=== PATIENT | male | born 2000 | race Caucasian/White ===

== ENCOUNTER 2021-11-15 12:06 | Emergency (ER) | payer OTHER, SELFPAY ==
--- NOTE | 2021-11-15 12:09 | ED.SKABFB ---
HPI - Skin/Abscess/Foreign Bdy General Chief complaint: Skin/Abscess/Foreign Body Stated complaint: Vomiting,Skin Sore Time Seen by Provider: 11/15/21 12:09 Source: patient and RN notes reviewed History of Present Illness HPI narrative: Patient is a 21-year-old male who presents the urgent care with his girlfriend with complaints of being bleeding from the bellybutton and one episode of vomiting this morning. Patient states that he vomited very early this morning, went back to sleep and denies of any nausea, diarrhea or abdominal pain. Patient states he has mild tenderness surrounding the bellybutton. States that he noticed the bellybutton was a little wet and stuck a Q-tip in there getting out blood. Denies any fever. Denies of any abdominal history or any recent trauma to the abdomen. No other acute complaints. No acute distress noted. Patient aware of the plan of care. Some parts of this dictation were generated by voice recognition software and may contain typographical and/or grammatical inaccuracies. Related Data Home Medications Medication Instructions Recorded Confirmed No Home Medications 11/15/21 11/15/21 Allergies Allergy/AdvReac Type Severity Reaction Status Date / Time No Known Drug Allergies Allergy Unknown Unknown Verified 11/15/21 12:24 Review of Systems Review of Systems: CONSTITUTIONAL: Denies fever, chills, or sweats. EYES: Denies visual changes, redness, or discharge. ENT: Denies rhinorrhea, congestion, sore throat, or otalgia. CARDIOVASCULAR: Denies chest pain, palpitations, or edema. RESPIRATORY: Denies cough or dyspnea. GASTROINTESTINAL: Reports of 1 episode of vomiting without abdominal pain, nausea or diarrhea. Reports of tenderness under the umbilicus with scant bleeding from the bellybutton GENITOURINARY: Denies dysuria or hematuria. SKIN: Denies rash or itching. MUSCULOSKELETAL: Denies back pain, joint pain, or myalgia. NEUROLOGIC: Denies headache, numbness, or weakness. All other systems reviewed are negative, except as documented in HPI. PMFSH Comments At the time of my signature, I reviewed and agree with the nursing past medical, surgical, social, and family history. There is no relevant family history pertinent to the patient complaint. Exam Narrative: GENERAL: This is a well-nourished, well-developed patient, in no apparent distress. HEAD: normocephalic, atraumatic. EYES: PERRL. Sclera clear/white. Vision is grossly intact. EARS: External ears normal NOSE: External nose normal with no obvious nasal discharge, nares without redness, no rhinorrhea. THROAT: Mucous membranes moist NECK: Neck supple, CARDIOVASCULAR: Regular rate and rhythm without murmurs, gallops, or rubs. RESPIRATORY: Clear to auscultation. Breath sounds equal bilaterally. No wheezes, rales, or rhonchi. GASTROINTESTINAL: Abdomen soft, mild firm/tenderness under the umbilical region, nondistended. Bowel sounds are active. No guarding. Scant dried blood noted to the umbilicus. SKIN: warm, intact with no suspicious lesions or rash, good texture and turgor. NEURO: awake, alert, and oriented to person, place and time. There were no obvious focal neurologic abnormalities. EXTREMITIES: No clubbing, cyanosis, or edema. Course Course Level of Care: Express Care Visit Vital Signs Vital signs: Vital Signs Temperature 99.3 F 11/15/21 12:13 Pulse Rate 75 11/15/21 12:13 Respiratory Rate 18 11/15/21 12:13 Blood Pressure 136/52 L 11/15/21 12:13 Pulse Oximetry 99 11/15/21 12:13 Temperature 99.3 F 11/15/21 12:13 Pulse Rate 75 11/15/21 12:13 Respiratory Rate 18 11/15/21 12:13 Blood Pressure 136/52 L 11/15/21 12:13 Pulse Oximetry 99 11/15/21 12:13 Reviewed MDM - Skin/Abscess/Foreign Bdy MDM Narrative Medical decision making narrative: Advised the patient not to put anything in the bellybutton, such as Q-tips. May wash the area with plain Dial soap and water. Wear nonocclusive clothing an
[2021-11-15 12:13] VITALS: BP 136/52; PULSE 75; RESP 18; TEMP 37.4; O2SAT 99
== END 2021-11-15 12:25 | disposition home or self-care (01) ==
PROVIDERS: Emergency Provider Nurse Practitioner Family
DX: R19.8 Other specified symptoms and signs involving the digestive system and abdomen (principal)
CPT/HCPCS: 99202; G0463

== ENCOUNTER 2024-06-28 12:29 | Emergency (ER) | payer OTHER, SELFPAY ==
[2024-06-28 12:36] VITALS: BP 145/85; PULSE 94; RESP 20; TEMP 36.4; O2SAT 100
--- NOTE | 2024-06-28 12:46 | ED.SKABFB ---
HPI - Skin/Abscess/Foreign Bdy General Chief complaint: Wound/Laceration Stated complaint: remove tim on left leg Time Seen by Provider: 06/28/24 12:46 Source: patient, RN notes reviewed and old records reviewed Mode of arrival: ambulatory Limitations: no limitations History of Present Illness HPI narrative: 24-year-old male to Express Care requesting staple removal oral left lower anterior leg. Patient states he cut it on a nail 9 days ago. Patient states he was unable to merchandise pickup/receiving associate antibiotic prescription from the emergency department due to finances. Area surrounding wound erythematous, edematous, tender to touch. Patient denies fever, drainage from wound allergies, history. Patient resting comfortably in exam room no acute distress. Related Data Allergies Allergy/AdvReac Type Severity Reaction Status Date / Time No Known Drug Allergies Allergy Unknown Unknown Verified 06/28/24 12:54 Review of Systems Review of Systems: All systems reviewed & are unremarkable except as noted in HPI and below Constitutional: Constitutional: Reports no additional constitutional complaints Eyes: Eyes: Reports no additional eye complaints ENT: Reports system reviewed and no additional complaints, except as documented Cardiovascular: Cardiovascular: Reports no additional cardiovascular complaints, Denies chest pain and Denies dyspnea Respiratory: Respiratory: Reports no additional respiratory complaints, Denies cough and Denies dyspnea Musculoskeletal: Musculoskeletal: Reports no additional musculoskeletal complaints Integumentary/Breasts: Skin/Breast: Reports wounds Comments: healing wound to left lower anterior leg, 3 tim need removal Neurologic: Reports system reviewed and no additional complaints, except as documented Psychiatric: Psychiatric: Reports no additional psychiatric complaints PMFSH Comments At the time of my signature, I reviewed and agree with the nursing past medical, surgical, social, and family history. There is no relevant family history pertinent to the patient complaint. Exam Const: General: cooperative, healthy appearing, comfortable, no acute distress, alert and well nourished Nutritional Appearance: well nourished Orientation/consciousness: patient oriented x3 Limitations: no limitations HENMT: Head: normal to inspection Ears: external ears normal Face/Nose/Sinus: Normal external nose present, Normal nares present, normal facial exam, No erythema and No edema Face and sinus: normal facial exam, no erythema and no edema Mouth: Yes Normal oral and palatal mucosa present Eyes: General: appearance normal, both eyes and all related structures Neck: Neck: normal visual inspection, full ROM and no meningeal signs Chest: Chest palpation & inspection: normal inspection of the chest Resp: Effort & Inspection: normal respiratory effort and able to speak in complete sentences Cardio: Jugular venous distension: no JVD Rate: regular rate Back/Spine/Pelvis: Cervical Spine: cervical ROM normal Skin: General skin exam: normal color, turgor normal and other Other: 3 tim present in healing wound to left lower anterior leg, 3.5cm in length. 5cm x 3cm surrounding area of erythema, edema, tenderness Neuro: General: patient oriented x3, gait normal, moves all extremities and no meningeal signs Speech: normal speech Gait exam (Neuro): Normal gait present Extrem: General: normal to inspection, full ROM and capillary refill normal Psych: Appearance: grossly normal and well kempt Course Course Emergency Course: Some parts of this dictation were generated by voice recognition software and may contain typographical and/or grammatical inaccuracies. Level of Care: Express Care Visit Vital Signs Vital signs: Vital Signs Temperature 36.4 C L 06/28/24 12:36 Pulse Rate 94 06/28/24 12:36 Respiratory Rate 20 06/28/24 12:36 Blood Pressure 145/85 H 06/28/24 12:36 Pulse Oximetry 100 06/28/24 12:36 Oxygen Delivery Room Air 06/28/24 12:36 Temperature 36.4 C L 06/28/24 12:36 Pulse Rate 94 06/28/24 12:36 Respiratory Rate 20 06/28/24 12:36 Blood Pressure 145/85 H 06/28/24 12:36 Pulse Oximetry 100 06/28/24 12:36 Oxygen Delivery Room Air 06/28/24 12:36 reviewed MDM - Skin/Abscess/Foreign Bdy MDM Narrative Medical decision making narrative: 24-year-old male to Express Care requesting staple removal oral left lower anterior leg. Patient states he cut it on a nail 9 days ago. Patient states he was unable to merchandise pickup/receiving associate antibiotic prescription from the emergency department due to finances. Area surrounding wound erythematous, edematous, tender to touch. Patient denies fever, drainage from wound allergies, history. Patient resting comfortably in exam room no acute distress. On exam, 3 tim present in healing wound to left lower anterior leg, 3.5cm in length. 5cm x 3cm surrounding area of erythema, edema, tenderness Patient is sitting comfortably in exam room nontoxic in appearance. Patient appropriate for outpatient treatment and follow-up. Discharge instructions reviewed with patient, as well as provided in writing per nursing staff. The instructions also include specific and strict return/GO TO THE ER as well as f/u information. All questions have been answered, and the patient deny any further questions with discharge and discharge plan. Some parts of this dictation were generated by voice recognition software and may contain typographical and/or grammatical inaccuracies. Differential Diagnosis Differential diagnosis: Likely abscess of skin or subcutaneous tissue, viral exanthem, dermatophytosis, urticaria, herpes zoster, allergic reaction to drug, cellulitis, eczema, insect bites, impetigo and contact dermatitis Discharge Plan Discharge Clinical Impression: Cellulitis of left leg, Removal of tim Patient Disposition: Home, Self-Care Condition: Stable Instructions: Cellulitis (ED) Additional Instructions: Please review attached instructions regarding cellulitis and implement suggestions as tolerated please merchandise pickup/receiving associate your prescription antibiotic and finish entire course of antibiotic therapy for new or worsening symptoms please go directly to the emergency department Prescriptions: New doxycycline hyclate 100 mg capsule 100 mg PO BID Qty: 14 0RF Follow-up/Referrals: PHYSICIAN,[employer] [Primary Care Provider] - Stand Alone Forms: Work/School Release IP
== END 2024-06-28 13:05 | disposition home or self-care (01) ==
PROVIDERS: Emergency Provider Nurse Practitioner Family
DX: L03.116 Cellulitis of left lower limb (principal); Z48.02 Encounter for removal of sutures
CPT/HCPCS: 99211; G0463

== ENCOUNTER 2024-10-22 18:59 | Emergency (ER) | payer SELFPAY ==
--- OUTSIDE RECORDS SUMMARY | 2024-10-22 19:01 | XMS_ITS | Clinical Summary ---
Author Organization [facility] Address [address] [place] [address] Care Team Providers Care Senior Financial Reporting Analyst Name Role Phone Tony Aparicio MD Primary Care Provider Source Comments [facility],non-owned Affiliates and Associated Physician Practices is amultiple site organization consisting of ambulatory clinics and hospital sitesin [place], [place], [place] and [place]. This disclosure is being madepursuant to the Care Everywhere program and may not contain all information available regarding this patient. Last updated 18.[facility] Allergies No known active allergies Medications * Be aware that medications may not be up to date on this document. Alwaysverify current medications with the patient. Medication Sig Dispensed Refills Start Date End Date Status hydrocortisone, rectal, (HEMORRHOIDAL-HC) 2.5 % cream 12/06/2015 Active omeprazole (PRILOSEC) 40 MG capsule Take 1 Cap by mouth daily before breakfast 30 Cap 3 03/27/2016 Active Active Problems Patient Care Coordination No te Formatting of this note migh t be different from the original. Jose Guadalupe is Tomeka (grandmother). Problem Noted Date Diagnosed Date Abnormal weight loss 03/27/2016 Abdominal pain, generalized 06/30/2014 Blood in stool 06/30/2014 Resolved Problems Problem Noted Date Diagnosed Date Resolved Date Constipation 01/07/2016 02/04/2016 Social History Tobacco Use Types Packs/Day Years Used Date Smoking Tobacco: Never Alcohol Use Standard Drinks/Week Comments Not Asked 0 (1 standard drink = 0.6 oz pur e alcohol) Sex and Gender Information Value Date Recorded Sex Assigned at Not on file Gender Identity Not on file Sexual Orientation Not on file Last Filed Vital Signs Vital Sign Reading Time Taken Comments Blood Pressure 104/70 03/27/2016 1:00 PM CDT Pulse 63 03/27/2016 1:00 PM CDT Temperature 36.3 C (97.4 F) 03/27/2016 12:18 PM CDT Respiratory Rate 18 03/27/2016 1:00 PM CDT Oxygen Saturation 98% 03/27/2016 1:00 PM CDT Inhaled Oxygen Concentration - - Weight 86.3 kg (190 lb 4.1 oz) 03/27/2016 9:05 A M CDT Height 185.2 cm (6' 0.91 ) 03/27/2016 9:05 AM CD T Body Mass Index 25.16 03/27/2016 9:05 AM CDT Plan of Treatment Health Maintenance Due Date Last Done Comments HIV SCREENING 2013 HPV VACCINE (1 - Male 3-dose series) 2013 HEPATITIS C SCREENING 03/23/2016 DTAP/TDAP/TD VACCINES (1 - Tdap) 2017 HEPATITIS B VACCINE (1 of 3 - 19+ 3-dose series) 2017 COVID-19 VACCINE (1 - 2023-2 5 season) 2024 INFLUENZA VACCINE (#1) 2024 DEPRESSION SCREENING 08/17/2024 ZOSTER VACCINE (1 of 2) 2048 HIB VACCINE Aged Out No longer eligi ble based on patient's age to complete this topic MENINGOCOCCAL (Group B) VACCINE Aged Out No longer eligible based on patient's age to complete this topic MENINGOCOCCAL VACCINE Aged Out No marlene gerson eligible based on patient's age to complete this topic PNEUMOCOCCAL VACCINE Aged Out No long er eligible based on patient's age to complete this topic Care Teams Senior Financial Reporting Analyst Relationship Specialty Start Date End Date Tony Aparicio MD PCP - General Internal Medicine 06/06/14
--- OUTSIDE RECORDS SUMMARY | 2024-10-22 19:01 | XMS_ITS | Patient Health Summary ---
Author Organization [facility] Address [address] [place] [address] Care Team Providers Care Software Clerk Name Role Phone Tony Aparicio MD Primary Care Provider Note from [facility],non-owned Affiliates and Associated Physician Practices is amultiple site organization consisting of ambulatory clinics and hospital sitesin [place], [place], [place] and [place]. This disclosure is being madepursuant to the Care Everywhere program and may not contain all information available regarding this patient. Last updated 18.[facility] Allergies No known active allergies Medications * Be aware that medications may not be up to date on this document. Alwaysverify current medications with the patient. * hydrocortisone, rectal, (HEMORRHOIDAL-HC) 2.5 % cream(Started 12/06/2015) * omeprazole (PRILOSEC) 40 MG capsule(Started 03/27/2016) Take 1 Cap by mouth daily before breakfast 3 refills left Active Problems Problem Noted Date Diagnosed Date Abnormal weight [...] Mass Index 25.16 03/27/2016 9:05 AM CDT Procedures * HELICOBACTER PYLORI UREASE (STL)(Performed 03/27/2016) Performed for Abdominal pain, generalized, Blood in stool, Abnormal weight loss * EGD(Performed 03/27/2016) * PATHOLOGY TISSUE EXAM (STL)(Performed 03/27/2016) Performed for Abdominal pain, unspecified abdominal location * PTT(Performed 03/27/2016) Performed for Abdominal pain, generalized, Blood in stool * PT-INR(Performed 03/27/2016) Performed for Abdominal pain, generalized, Blood in stool * C-REACTIVE PROTEIN(Performed 03/27/2016) Performed for Abdominal pain, generalized, Blood in stool * COMPREHENSIVE METABOLIC PANEL(Performed 03/27/2016) Performed for Abdominal pain, generalized, Blood in stool * CBC W AUTO DIFFERENTIAL(Performed 03/27/2016) Performed for Abdominal pain, generalized, Blood in stool * ESOPHAGOSCOPY DIAGNOSTIC WITH BIOPSY(Performed 03/27/2016) Performed for Abdominal pain, unspecified abdominal location * COLONOSCOPY BIOPSY (ANY METHOD)(Performed 03/27/2016) Performed for Abdominal pain, unspecified abdominal location * ENDOSCOPY, COLON, DIAGNOSTIC(Performed 03/27/2016) Performed for Abdominal pain, generalized, Blood in stool * CULTURE STOOL PANEL(Performed 06/30/2014) * GIARDIA CRYPTOSPORIDIUM ANTIGEN PANEL(Performed 06/30/2014) Performed for Abdominal pain, generalized, Blood In Stool * O+P PANEL(Performed 06/30/2014) Performed for Abdominal pain, generalized, Blood In Stool * C DIFFICILE TOXIN A+B(Performed 06/30/2014) Performed for Abdominal pain, generalized, Blood In Stool * TISSUE TRANSGLUTAMINASE AB IGA(Performed 06/30/2014) Performed for Abdominal pain, generalized, Blood In Stool * PTT(Performed 06/30/2014) Performed for Abdominal pain, generalized, Blood In Stool * PT-INR(Performed 06/30/2014) Performed for Abdominal pain, generalized, Blood In Stool * IGA BLOOD(Performed 06/30/2014) Performed for Abdominal pain, generalized, Blood In Stool * C-REACTIVE PROTEIN(Performed 06/30/2014) Performed for Abdominal pain, generalized, Blood In Stool * COMPREHENSIVE METABOLIC PANEL(Performed 06/30/2014) Performed for Abdominal pain, generalized, Blood In Stool * CBC W AUTO DIFFERENTIAL(Performed 06/30/2014) Performed for Abdominal pain, generalized, Blood In Stool * AMYLASE BLOOD(Performed 06/30/2014) Performed for Abdominal pain, generalized, Blood In Stool Results * HELICOBACTER PYLORI UREASE (STL) (03/27/2016 12:00 PM CDT) Helicobacter pylori Urease Initial Negative Negative 2016 6:34 PM CDT [facility] Helicobacter pylori Urease Final Negative Negative 2016 6:34 PM CDT [facility] Comment:This is an appended report. These results have been appended to a previously preliminary verified report. Microbiology GASTRIC ANTRAL BIOPSY SPECIMEN / Unknown 03/27/2016 12:00 PM CDT 03/27/2016 3:20 PM CDT Carroll Conte MD LAB - MICROBIOLOGY ORDERABLES Performing Organization Address City/State/[facility] Co de Phone Number [facility] [address] [place] [address] * EGD (03/27/2016 11:53 AM CDT) Report Endoscopy POC _ Patient Name: Chris Keller Date of : 2000 Admit Type: Outpatient Age: 15 Gender: Male Attending MD: Carroll Conte MD Order #: [id number] _ Procedure: Upper GI endoscopy Indications: Generalized abdominal pain, Hematochezia, Diarrhea Providers: Carroll Conte MD Referring MD: Tony Aparicio Medicines: General Anesthesia Complications: No immediate complications. _ Procedure: After obtaining informed consent, the endoscope was passed under direct vision. Throughout the procedure, the patient's blood pressure, pulse, and oxygen saturations were monitored continuously. The Endoscope was introduced through the mouth, and advanced to the third part of duodenum. The upper GI endoscopy was accomplished without difficulty. The patient tolerated the procedure well. Findings: The examined duodenum was normal. Biopsies were taken with a cold forceps for histology. 2 samples The entire examined stomach was normal. Biopsies were taken with a cold forceps for histology. Pediatric Grade 2 (confluent, noncircumferential erosive or exudative lesions, deep vertical grooving) esophagitis with no bleeding was found at the gastroesophageal junction. Biopsies were taken with a cold forceps for histology. Impression: - Normal examined duodenum. Biopsied. - Normal stomach. Biopsied. - Pediatric Grade 2 (confluent, noncircumferential erosive or exudative lesions, deep vertical grooving) esophagitis. Biopsied. Recommendation: - Discharge patient to home (with parent). - Continue present medications. - Use Prilosec (omeprazole) 40 mg PO daily. - Await pathology results. - Telephone GI clinic for pathology results in 1 week. Procedure Code(s): --- Professional --- 52805, Esophagogastroduodeno scopy, flexible, transoral; with biopsy, single or multiple --- Technical --- 48890, Esophagogastroduodeno scopy, flexible, transoral; with biopsy, single or multiple Diagnosis Code(s): --- Professional --- K20.9, Esophagitis, unspecified R10.84, Generalized abdominal pain K92.1, Melena (includes Hematochezia) R19.7, Diarrhea, unspecified --- Technical --- K20.9, Esophagitis, unspecified R10.84, Generalized abdominal pain K92.1, Melena (includes Hematochezia) R19.7, Diarrhea, unspecified CPT copyright 2015 [employer]. All rights reserved. The codes documented in this report are preliminary and upon process automation engineer review may be revised to meet current compliance requirements. Dr. Carroll Conte Carroll Conte MD 03/27/2016 12:10:03 PM This report has been signed electronically. Number of Addenda: 0 Note Initiated On: 03/27/2016 11:53 AM Procedure Date: 03/27/2016 11:53:17 AM This report has been signed electronically. [facility] 03/27/2016 11:5 3 AM CDT Carroll Conte MD GI PROCEDURE ORDERA BLES Performing Organization Address City/State/[facility] Co de Phone Number [facility] [address] [place] [address] * GROSS + MICRO EXAM (STL) (03/27/2016 11:42 AM CDT) Case Report Surgical Pathology Report Case: [id number] Authorizing Provider: Carroll Conte MD Collected: 03/27/2016 11:42 AM Ordering Location: ENDOSCOPY SERVICES Received: 03/27/2016 12:23 PM Pathologist: Krystian Serna MD Specimens: A) - Ileum Terminal, biopsy B) - Colon Ascending Biopsy C) - Colon Descending Biopsy D) - Rectal Biopsy E) - Duodenal Biopsy F) - Stomach Biopsy G) - Esophageal Biopsy 04/07/2016 12:24 PM CDT [facility] Final Diagnosis A. ILEUM, TERMINAL, BIOPSY: - NO PATHOLOGICAL DIAGNOSIS. B. COLON, ASCENDING, BIOPSY: - NO PATHOLOGICAL DIAGNOSIS. C. COLON, DESCENDING, BIOPSY: - NO PATHOLOGICAL DIAGNOSIS. D. RECTUM, BIOPSY: - RARE INTRAEPITHELIAL AND LAMINA PROPRIA NEUTROPHILS. SEE MICROSCOPIC DESCRIPTION AND COMMENT. E. DUODENUM, BIOPSY: - MILD CHRONIC INFLAMMATION. F. STOMACH, BIOPSY: - NO PATHOLOGICAL DIAGNOSIS. G. ESOPHAGUS, BIOPSY: - ESOPHAGITIS, MILD. - INTRAEPITHELIAL EOSINOPHILS ARE NOT SEEN. COMMENT: Sections from the rectum shows very rare intraepithelial neutrophils and lamina propria with no evidence of architectural changes or chronic lymphoplasmacytic inflammation. These findings have been reported associated to colonic preparation. 04/07/2016 12:24 PM [facility] Clinical History The patient is a 15-year-old boy with abdominal pain who underwent upper endoscopy and colonoscopy. 04/07/2016 12:24 PM [facility] Gross Description The specimens are received fixed in formalin in seven containers for gross and microscopic examination. All containers are labeled with the patient's name, Chris Keller. Specimen A, terminal ileum biopsy consists of two soft, yellow-yeung tissue fragments 3-5 mm in greatest dimension. The specimen is submitted in toto as A1. Specimen B, ascending colon biopsy consists of two soft, yellow-yeung tissue fragments 4-5 mm in greatest dimension. The specimen is submitted in toto as B1. Specimen C, descending colon biopsy consists of two soft, yellow-yeung tissue fragments 4-5 mm in greatest dimension. The specimen is submitted in toto as C1. Specimen D, rectum biopsy consists of three soft, yellow-yeung tissue fragments 4-5 mm in greatest dimension. The specimen is submitted in toto as D1. Specimen E, duodenal biopsy consists of four soft, yellow-yeung tissue fragments 1 mm to 4 mm in greatest dimension. The specimen is submitted in toto as E1. Specimen F, stomach biopsy consists of two soft, yellow-yeung tissue fragments 3-4 mm in greatest dimension. The specimen is submitted in toto as F1. Specimen G, esophageal biopsy consists of two pink-yeung tissue fragments 3-4 mm in greatest dimension. The specimen is submitted in toto as G1. Delaney 04/07/2016 12:24 PM [facility] Microscopic Description 21 H&E Sections from the terminal ileum shows no significant histopathological changes. Sections from the ascending and descending colon shows colonic mucosa with preserved architecture and no significant inflammation. The sections from the rectum, in addition, shows rare intraepithelial and lamina propria neutrophils. Sections from duodenum show duodenal mucosa with normal villous architecture. There is mild increased in lamina propria plasma cells. Acute inflammation or micro-organisms are not seen. Sections from the stomach show oxyntic and antral-type gastric mucosa with preserved architecture and no significant inflammation. Sections from the esophagus show squamous mucosa with congestion and mild hyperplasia of lamina propria papillae. Inflammation, including eosinophils, are not seen. 04/07/2016 12:24 PM CDT [facility] Pathology/Cytology TERMINAL ILEUM RESECTION SPECIMEN / Unknown 03/27/2016 11:42 AM CDT 03/27/2016 12:23 PM CDT Miscellaneous samples (specimen) COLONIC BIOPSY SPECIMEN / Unknown 03/27/2016 11:44 AM CDT 03/27/2016 12:23 PM CDT Miscellaneous samples (specimen) COLONIC BIOPSY SPECIMEN / Unknown 03/27/2016 11:44 AM CDT 03/27/2016 12:23 PM CDT Miscellaneous samples (specimen) RECTAL BIOPSY SPECIMEN / Unknown 03/27/2016 11:44 AM CDT 03/27/2016 12:23 PM CDT Miscellaneous samples (specimen) DUODENAL BIOPSY SPECIMEN / Unknown 03/27/2016 11:59 AM CDT 03/27/2016 12:23 PM CDT Miscellaneous samples (specimen) BIOPSY OF STOMACH / Unknown 03/27/2016 11:59 AM CDT 03/27/2016 12:23 PM CDT Miscellaneous samples (specimen) ESOPHAGEAL BIOPSY SPECIMEN / Unknown 03/27/2016 11:59 AM CDT 03/27/2016 12:23 PM CDT Carroll Conte MD LAB - PATHOLOGY/CYT OLOGY ORDERABLES Performing Organization Address City/State/[facility] Co de Phone Number [facility] [place] [address] * C-REACTIVE PROTEIN (03/27/2016 11:23 AM CDT) Only the most recent of2 resultswithin the time period is included. C-Reactive Protein <0.20 <=0.50 mg/dL 03/27/2016 12:24 PM CDT [facility] Blood BLOOD SPECIMEN / Unknown 03/27/2016 11:23 AM CDT 03/27/2016 11:37 AM CDT Carroll Conte MD LAB - CHEMISTRY ORD ERABLES Performing Organization Address [facility] de Phone Number [facility] [address] [place] [phone] * PTT (03/27/2016 11:23 AM CDT) Only the most recent of2 resultswithin the time period is included. PTT 26.5 21.0 - 32.0 sec 03/27/2016 1:48 PM CDT [facility] Blood BLOOD SPECIMEN / Unknown 03/27/2016 11:23 AM CDT 03/27/2016 11:38 AM CDT Narrative [facility] - 03/27/2016 1:48 PM CDT Heparin Therapeutic Range for PTT: 47.7 - 68.6 seconds. Carroll Conte MD LAB - COAGULATION O RDLAURENT Performing Organization Address [facility] de Phone Number [facility] [address] [place] [phone] * PT-INR (03/27/2016 11:23 AM CDT) Only the most recent of2 resultswithin the time period is included. PT 10.8 9.5 - 11.6 sec 03/27/2016 1:47 PM CDT [facility] INR 1.0 0.9 - 1.1 03/27/2016 1:47 PM CDT [facility] Blood BLOOD SPECIMEN / Unknown 03/27/2016 11:23 AM CDT 03/27/2016 11:38 AM CDT Narrative [facility] - 03/27/2016 1:47 PM CDT Conventional Warfarin Anticoagulant Therapy: INR Reference Range: 2.0-3.0 Intensive Warfarin Anticoagulant Therapy: INR Reference Range: 2.5-3.5 Carroll Conte MD LAB - COAGULATION O RDERABLES Performing Organization Address [facility] Co de Phone Number [facility] [address] [place] [address] * (ABNORMAL) CBC W AUTO DIFFERENTIAL (03/27/2016 11:23 AM CDT) Only the most recent of2 resultswithin the time period is included. WBC 7.7 4.5 - 11.0 x10E9/L 03/27/2016 12:59 PM CDT [facility] WBC Corrected x10E9/L 03/27/2016 12:59 PM CDT [facility] RBC 4.79 4.50 - 5.30 x10E12/L 03/27/2016 12:59 PM CDT [facility] Hemoglobin 14.2 13.0 - 16.0 gm/dL 03/27/2016 12:59 PM CDT [facility] Hematocrit 43.3 37.0 - 49.0 % 03/27/2016 12:59 PM CDT [facility] MCV 90.4 78.0 - 98.0 fl 03/27/2016 12:59 PM CDT [facility] MCH 29.6 25.0 - 35.0 pg 03/27/2016 12:59 PM CDT [facility] MCHC 32.8 31.0 - 37.0 gm/dL 03/27/2016 12:59 PM CDT [facility] Platelet Count 236 100 - 400 x10E9/L 03/27/2016 12:59 PM CDT [facility] RDW-CV 11.8 11.5 - 14.0 % 03/27/2016 12:59 PM CDT [facility] MPV 11.1(H) 6.0 - 9.5 fl 03/27/2016 12:59 PM CDT [facility] Neutrophils % 52.0 31.0 - 78.0 % 03/27/2016 12:59 PM CDT [facility] Lymphocytes % 36.0 13.0 - 54.0 % 03/27/2016 12:59 PM CDT [facility] Monocytes % 9.1 4.0 - 13.0 % 03/27/2016 12:59 PM CDT [facility] Eosinophils % 2.2 0.0 - 8.0 % 03/27/2016 12:59 PM CDT [facility] Basophils % 0.4 % 03/27/2016 12:59 PM CDT [facility] Immature Granulocytes 0.3 % 03/27/2016 12:59 PM CDT [facility] Neutrophil Absolute 4.02 x10E9/L 03/27/2016 12:59 PM CDT [facility] Lymphocytes Absolute 2.78 x10E9/L 03/27/2016 12:59 PM CDT [facility] Monocytes Absolute 0.70 x10E9/L 03/27/2016 12:59 PM CDT [facility] Eosinophils Absolute 0.17 x10E9/L 03/27/2016 12:59 PM CDT [facility] Basophils Absolute 0.03 x10E9/L 03/27/2016 12:59 PM CDT [facility] Immature Granulocytes Absolute 0.02 x10E9/L 03/27/2016 12:59 PM CDT [facility] nRBC Auto 0 /100 WBC 03/27/2016 12:59 PM CDT [facility] Blood BLOOD SPECIMEN / Unknown 03/27/2016 11:23 AM CDT 03/27/2016 11:38 AM CDT Carroll Conte MD LAB - HEMATOLOGY OR DERABLES Performing Organization Address City/State/[facility] Co de Phone Number [facility] [address] [place] [phone] * (ABNORMAL) COMPREHENSIVE METABOLIC PANEL (03/27/2016 11:23 AM CDT) Only the most recent of2 resultswithin the time period is included. [facility] Signature Glucose 91 70 - 105 mg/dL 03/27/2016 12:45 PM CDT [facility] Sodium 142 136 - 145 mmol/L 03/27/2016 12:45 PM CDT [facility] Potassium 3.7 3.5 - 5.1 mmol/L 03/27/2016 12:45 PM CDT [facility] Chloride 107 98 - 107 mmol/L 03/27/2016 12:45 PM CDT [facility] CO2 25 20 - 28 mmol/L 03/27/2016 12:45 PM CDT [facility] Calcium 9.34 9.08 - 10.48 mg/dL 03/27/2016 12:45 PM CDT [facility] Anion Gap 10 5 - 20 mmol/L 03/27/2016 12:45 PM CDT [facility] BUN 5.9 5.3 - 18.7 mg/dL 03/27/2016 12:45 PM CDT [facility] Creatinine 1.08(H) 0.61 - 1.07 mg/dL 03/27/2016 12:45 PM CDT [facility] Alkaline Phosphatase 67(L) 100 - 390 U/L 03/27/2016 12:45 PM CDT [facility] ALT 16 6 - 46 U/L 03/27/2016 12:45 PM CDT [facility] Comment:See reference range update AST 12 3 - 35 U/L 03/27/2016 12:45 PM CDT [facility] Protein Total 7.2 6.3 - 8.2 gm/dL 03/27/2016 12:45 PM CDT [facility] Albumin 4.4 3.3 - 4.9 gm/dL 03/27/2016 12:45 PM CDT [facility] Bilirubin Total 1.6(H) 0.3 - 1.2 mg/dL 03/27/2016 12:45 PM T [facility] Blood BLOOD SPECIMEN / Unknown 03/27/2016 11:23 AM CDT 03/27/2016 11:37 AM CDT Carroll Conte MD LAB - CHEMISTRY ORD ERABLES [facility] [address] [place] [address] * ENDOSCOPY, COLON, DIAGNOSTIC (03/27/2016 5:53 AM CDT) Report Endoscopy POC _ Patient Name: Chris Keller Date of : 2000 Admit Type: Outpatient Age: 15 Gender: Male Attending MD: Carroll Conte MD Order #: [id number] _ Procedure: Colonoscopy Indications: Generalized abdominal pain, Chronic diarrhea, Hematochezia, Weight loss Providers: Carroll Conte MD Referring MD: Tony Aparicio Medicines: General Anesthesia Complications: No immediate complications. _ Procedure: After I obtained informed consent, the scope was passed under direct vision. Throughout the procedure, the patient's blood pressure, pulse, and oxygen saturations were monitored continuously. The Colonoscope was introduced through the anus and advanced to the terminal ileum. The colonoscopy was performed without difficulty. The patient tolerated the procedure well. The quality of the bowel preparation was good. Scope insertion time was 11 minutes. Findings: The perianal and digital rectal examinations were normal. The terminal ileum appeared normal. Biopsies were taken with a cold forceps for histology. The colon (entire examined portion) appeared normal. Biopsies were taken with a cold forceps for histology. Bx ascending, descending and rectum Impression: - The examined portion of the ileum was normal. Biopsied. - The entire examined colon is normal. Biopsied. Recommendation: - Discharge patient to home (with parent). - Continue present medications. - Await pathology results. - Telephone GI clinic for pathology results in 1 week. Procedure Code(s): --- Professional --- 10426, Colonoscopy, flexible; with biopsy, single or multiple --- Technical --- 20829, Colonoscopy, flexible; with biopsy, single or multiple Diagnosis Code(s): --- Professional --- R10.84, Generalized abdominal pain K52.9, Noninfective gastroenteritis and colitis, unspecified K92.1, Melena (includes Hematochezia) R63.4, Abnormal weight loss --- Technical --- R10.84, Generalized abdominal pain K52.9, Noninfective gastroenteritis and colitis, unspecified K92.1, Melena (includes Hematochezia) R63.4, Abnormal weight loss CPT copyright 2015 [employer]. All rights reserved. The codes documented in this report are preliminary and upon process automation engineer review may be revised to meet current compliance requirements. Dr. Carroll Conte ___ Carroll Conte MD 03/27/2016 12:12:38 PM This report has been signed electronically. Number of Addenda: 0 Note Initiated On: 03/27/2016 5:53 AM Procedure Date: 03/27/2016 5:53:54 AM This report has been signed electronically. [facility] 03/27/2016 5:53 AM CDT Christi BUTCHER GI PROCEDURE ESDRAS ARDON [facility] [place] [address] * CULTURE STOOL PANEL (06/30/2014 1:40 PM MEDICAL EDUCATION COORDINATOR) E[facility] Comment: SHIGA TOXINS, EIA W/RFL TO E.COLI O157 CULTURE MICRO NUMBER: [id number] TEST STATUS: FINAL SPECIMEN SOURCE: STOOL SPECIMEN QUALITY: ADEQUATE RESULT: Not Detected Test Performed at: [facility] [id number] ELIZA JHA MD Culture [facility] Comment: CAMPYLOBACTER, CULTURE MICRO NUMBER: [id number] TEST STATUS: FINAL SPECIMEN SOURCE: STOOL SPECIMEN QUALITY: ADEQUATE RESULT: No enteric Campylobacter isolated Culture [facility] Comment: SALMONELLA AND SHIGELLA, CULTURE MICRO NUMBER: [id number] TEST STATUS: FINAL SPECIMEN SOURCE: STOOL SPECIMEN QUALITY: ADEQUATE RESULT: No Salmonella or Shigella isolated 06/30/2014 1:40 PM MEDICAL EDUCATION COORDINATOR 06/30/2014 1:42 PM MEDICAL EDUCATION COORDINATOR Christi BUTCHER LAB - MICROBIOLOG Y ORDERABLES Performing Organization Address [facility] de Phone Number [address] [address] * GIARDIA CRYPTOSPORIDIUM ANTIGEN PANEL (06/30/2014 1:28 PM MEDICAL EDUCATION COORDINATOR) DFA [facility] Comment: CRYPTOSPORIDIUM AG, DFA MICRO NUMBER: [id number] TEST STATUS: FINAL SPECIMEN SOURCE: STOOL SPECIMEN QUALITY: ADEQUATE CRYPTOSPORIDIUM: Not Detected Test Performed at: [facility] [id number] ELIZA JHA MD EIA [facility] Comment: GIARDIA AG, EIA, STOOL MICRO NUMBER: [id number] TEST STATUS: FINAL SPECIMEN SOURCE: STOOL SPECIMEN QUALITY: ADEQUATE RESULT 1: Not Detected Stool specimen (specimen) STOOL SPECIMEN / Unknown 06/30/2014 1:28 PM MEDICAL EDUCATION COORDINATOR 06/30/2014 1:29 PM MEDICAL EDUCATION COORDINATOR Christi BUTCHER LAB - MICROBIOLOG Y ORDERABLES Performing Organization Address [facility] [place] [address] * O+P PANEL (06/30/2014 1:28 PM MEDICAL EDUCATION COORDINATOR) Trichrome (1) [facility] Comment: OVA AND PARASITES, STOOL CONC AND PERM SMEAR MICRO NUMBER: [id number] TEST STATUS: FINAL SPECIMEN SOURCE: FECES SPECIMEN QUALITY: ADEQUATE CONCENTRATION 1: No ova or parasites seen TRICHROME 1: No ova or parasites seen One negative sample does not necessarily rule out the presence of a parasitic infection. Routine Ova and Parasite exam may not detect some parasites that occasionally cause diarrheal illness. Test code(s) 04315Q (Cryptosporidium Ag., DFA) and/or 31426S (Cyclospora and Isospora Exam) may be ordered to detect these parasites. Test Performed at: [facility] [id number] ELIZA JHA MD Stool specimen (specimen) STOOL SPECIMEN / Unknown 06/30/2014 1:28 PM MEDICAL EDUCATION COORDINATOR 06/30/2014 1:29 PM MEDICAL EDUCATION COORDINATOR Christi BUTCHER LAB - MICROBIOLOG Y ORDERABLES Performing Organization Address [facility] Co de Phone Number [address] [address] * CLOSTRIDIUM DIFFICILE TOXIN (06/30/2014 1:28 PM MEDICAL EDUCATION COORDINATOR) C difficile Toxin/GDH w/Reflex to PCR [facility] Comment: CLOSTRIDIUM DIFFICILE TOXIN/GDH W/REFL TO PCR MICRO NUMBER: [id number] TEST STATUS: FINAL SPECIMEN SOURCE: STOOL SPECIMEN QUALITY: INADEQUATE GDH ANTIGEN: Test not performed. Unformed stool required for testing. TOXIN A AND B: Test not performed. Test Performed at: [facility] [address] ELIZA JHA MD Stool specimen (specimen) STOOL SPECIMEN / Unknown 06/30/2014 1:28 PM MEDICAL EDUCATION COORDINATOR 06/30/2014 1:29 PM MEDICAL EDUCATION COORDINATOR Christi Marte APRN-[facility] - MICROBIOLOG Y ORDERABLES Performing Organization Address [facility] de Phone Number [address] [address] * TISSUE TRANSGLUTAMINASE AB IGA (06/30/2014 10:31 AM MEDICAL EDUCATION COORDINATOR) Tissue Transglutaminase (tTG) Ab, IgA 4 0 - 19 Units 07/02/2014 8:10 AM MEDICAL EDUCATION COORDINATOR [facility] Comment: No further celiac testing to be performed. INTERPRETIVE INFORMATION: Tissue Transglutaminase (tTG) Antibody, IgA 19 Units or less: Negative 20-30 Units: Weak Positive 31 Units or greater: Moderate to Strong Positive Presence of the tissue transglutaminase (tTG) IgA antibody is associated with gluten-sensitive enteropathies such as celiac disease and dermatitis herpetiformis. tTG IgA antibody concentrations greater than or equal to 100 Units usually correlate with results of duodenal biopsies consistent with a diagnosis of celiac disease. For antibody concentrations greater than 20 Units but less than 100 Units, additional testing for endomysial (TELMA) IgA concentrations may improve the positive predictive value for disease. Blood specimen (specimen) BLOOD SPECIMEN / Unknown Lab Venipuncture / Unknown 06/30/2014 10:31 AM MEDICAL EDUCATION COORDINATOR 06/30/2014 10:38 AM MEDICAL EDUCATION COORDINATOR Christi Marte APRN-[facility] - SEROLOGY OR DERABLES [facility] [employer] ([facility]) [address] * (ABNORMAL) AMYLASE BLOOD (06/30/2014 10:31 AM MEDICAL EDUCATION COORDINATOR) Amylase 84(H) 5 - 65 U/L 06/30/2014 11:27 AM MEDICAL EDUCATION COORDINATOR [facility] Blood BLOOD SPECIMEN / Unknown Lab Venipuncture / Unknown 06/30/2014 10:31 AM MEDICAL EDUCATION COORDINATOR 06/30/2014 10:37 AM MEDICAL EDUCATION COORDINATOR Christi Marte [facility] - CHEMISTRY O RDERABLES Performing Organization Address City/[facility]/ZIP Co de Phone Number [facility] [address] [place] [address] * IGA BLOOD (06/30/2014 10:31 AM MEDICAL EDUCATION COORDINATOR) IgA 112 63 - 484 mg/dL 06/30/2014 11:27 AM MEDICAL EDUCATION COORDINATOR [facility] Blood BLOOD SPECIMEN / Unknown Lab Venipuncture / Unknown 06/30/2014 10:31 AM MEDICAL EDUCATION COORDINATOR 06/30/2014 10:37 AM MEDICAL EDUCATION COORDINATOR Christi Marte SUPERVISOR MECHANIC BOILERMAKING-[facility] - CHEMISTRY O RDERABLES Performing Organization Address City/[facility] Co de Phone Number [facility] [address] [place] [address] Care Teams Software Clerk Relationship Specialty Start Date End Date Tony Aparicio MD PCP - General Internal Medicine 06/06/14
--- OUTSIDE RECORDS SUMMARY | 2024-10-22 19:01 | XMS_ITS | Referral Summary ---
Author Organization [facility] Address [address] [place] [address] Care Team Providers Care Manager Battery Name Role Phone Tony Aparicio MD Primary Care Provider [phone] [facility],non-owned Affiliates and Associated Physician Practices is amultiple site organization consisting of ambulatory clinics and hospital sitesin [place], [place], [place] and [place]. This disclosure is being madepursuant to the Care Everywhere program and may not contain all information available regarding this patient. Last updated 18.[facility] Allergies No known active allergies Medications * [...] Mass Index 25.16 03/27/2016 9:05 AM CDT Functional Status Functional Status Response Date of Assess ment Is person deaf or have serious hearing difficult y? No 03/27/2016 Is person blind or have serious difficulty seein g? No 03/27/2016 Does person have serious dif ficulty walking/climbing stairs? No 03/27/2016 Does person have difficulty dressing/bathing? No 03/27/2016 Does person have difficulty doing errands alone? No 03/27/2016 Cognitive Status Response Date of Assessm ent Does person have difficulty concentrating/remembering/making decisions? No 03/27/2016 Plan of Treatment Not on file Care Teams Manager Battery Relationship Specialty Start Date End Date Tony Aparicio MD PCP - General Internal Medicine 06/06/14
--- OUTSIDE RECORDS SUMMARY | 2024-10-22 19:01 | XMS_ITS | Clinical Summary ---
Author Organization [facility] Address [address] [place] [address] Phone Care Team Providers Care Chemist Enzymes Name Role Phone Provider, None Primary Care Provider Unavailabl e Allergies No known active allergies Medications HYDROcodone-alex taminophen (NORCO) 5-325 MG TabletIndicatio ns:Chest wall contusion, left, initial encounter Take 1-2 Tablets by mouth every 8 hours as needed for Moderate or more severe pain. 12 Tablet 2 Active Additional Information Patient not taking.Reported on 06/11/2022 traMADol (ULTRAM) 50 MG TabletIndicatio ns:Laceration of left lower extremity, initial encounter Take 1-2 Tablets by mouth every 8 hours as needed for Moderate or more severe pain. 12 Tablet 4 Active ibuprofen (MOTRIN) 800 MG Tablet Take 1 Tablet by mouth every 6 hours as needed for Mild or more severe pain. 30 Tablet 4 Active Active Problems No known active problems Encounters Date Type Department Care Team Description 10/22/2024 6:38 PM GEOSPATIAL EXTRACTOR ANALYSIS Emergency [facility] Emergency [address] [place] [address] from Last 3 Months Immunizations Immunization Administration Dates Next Due TDAP Vaccine 06/17/2024 Family History Medical History Relation Name Comments No Known Problems Father No Known Problems Mother Relation Name Status Comments Father Alive Mother Alive Social History Tobacco Use Types Packs/Day Years Used Date Smoking Tobacco: Never Smokeless Tobacco: Never Alcohol Use Standard Drinks/Week Comments Yes 0 (1 standard drink = 0.6 oz pur e alcohol) socially PHQ-2 Answer Date Recorded Total Score - Questions 1-9 0 01/2022 Sexually Active Control Partners Comments Yes Sex and Gender Information Value Date Recorded Sex Assigned at Not on file Legal Sex Male 12:01 AM CDT Gender Identity Not on file Sexual Orientation Not on file Last Filed Vital Signs Vital Sign Reading Time Taken Comments Blood Pressure 160/104 06/17/2024 6:34 PM CDT Pulse 91 06/17/2024 6:34 PM CDT Temperature 36.6 C (97.9 F) 06/17/2024 6:34 PM CDT Respiratory Rate 18 06/17/2024 6:34 PM CDT Oxygen Saturation 100% 06/17/2024 6:34 PM CDT Inhaled Oxygen Concentration - - Weight 99.8 kg (220 lb 0.3 oz) 06/17/2024 6:34 P M CDT Height 185.4 cm (6' 1 ) 06/17/2024 6:34 PM CDT Body Mass Index 29.03 06/17/2024 6:34 PM CDT Plan of Treatment Health Maintenance Due Date Last Done Comments Hepatitis C Virus (HCV) Screening 1998 Influenza Immunization (#1) 04/17/202405/18, 09/21/2009, 07/11/2008 SARS-COV-2 Immunization ( season) 2024 Td Immunization Every 10 Years (Adults With 1 Tdap) 06/17/2034 06/17/2024, 05/02/2022, 08/23/2018, Additional history exists Respiratory Syncytial Virus (RSV) Immunization (Adult) (1 - 1-dose 75+ series) 2073 Hepatitis B Immunization Completed 999, 1998, 1998 Human Papillomavirus (HPV) Immunization Completed 03/12/2011, 06/17/2010, 04/04/2010 Meningococcal Immunization (ACWY) Completed 01/15/2015, 09/21/2009 DTaP/Tdap/Td Immunization Discontinued 2023, 05/02/2022, 08/23/2018, Additional history exists TdaP Immunization Discontinued 06/17/2024, , 08/23/2018, Additional history exists Pneumococcal Immunization Combined Aged Out No longer eligible based on patient's age to complete this topic Rotavirus Immunization Aged Out No lo nger eligible based on patient's age to complete this topic Additional Health Concerns Infection Onset Date Last Indicated MRSA 06/13/2022 06/13/2022 Care Teams Chemist Enzymes Relationship Specialty Start Date End Date Provider, None [place] PCP - General 11/22/20
--- OUTSIDE RECORDS SUMMARY | 2024-10-22 19:01 | XMS_ITS | Encounter Summary ---
Author Organization [facility] Address [address] [place] [address] Phone Care Team Providers Care Grinder Set Up Operator Centerless Name Role Phone Provider, None Primary Care Provider Unavailabl e Encounter Details Date Type Department Care Team (Late st Contact Info) Description 10/22/2024 6:38 PM TIMBER TREATMENT PLANT OPERATOR Emergency [facility] Emergency [address] [place] [id number] Social History Tobacco Use Types Packs/Day Years Used Date Smoking Tobacco: Never Smokeless Tobacco: Never Alcohol Use Standard Drinks/Week Comments Yes 0 (1 standard drink = 0.6 oz pur e alcohol) socially PHQ-2 Answer Date Recorded Total Score - Questions 1-9 0 04/0 01/2022 Sexually Active Control Partners Comments Yes Sex and Gender Information Value Date Recorded Sex Assigned at Not on file Legal Sex Male 12:01 AM CDT Gender Identity Not on file Sexual Orientation Not on file documented as of this encounter Plan of Treatment Not on file documented as of this encounter Visit Diagnoses Not on filedocumented in this encounter Additional Health Concerns Infection Onset Date Last Indicated Resolved Time MRSA 06/13/2022 06/13/2022 documented as of this encounter Care Teams Grinder Set Up Operator Centerless Relationship Specialty Start Date End Date Provider, [place] PCP - General 11/22/20 documented as of this encounter
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
[2024-10-22 19:12] VITALS: BP 155/86; PULSE 108; RESP 16; TEMP 37.5; O2SAT 100
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
== END 2024-10-22 21:08 | disposition home or self-care (01) ==
PROVIDERS: Emergency Provider Nurse Practitioner
DX: L03.116 Cellulitis of left lower limb (principal)
CPT/HCPCS: 87070; 87075; 87205; 99213; G0463